=== PATIENT | female | born 1985 | race Caucasian/White ===

== ENCOUNTER 2024-02-29 11:03 | Emergency (ER) | payer MEDICAID ==
[2024-02-29 11:22] LABS: APPEARANCE,URINE SLT CLOUDY; BILIRUBIN,URINE NEGATIVE (NEGATIVE); COLOR,URINE YELLOW; GLUCOSE,URINE NEGATIVE (NEGATIVE); KETONES,URINE TRACE mg/dL (NEGATIVE); LEUKOCYTE ESTERASE,URINE SMALL (NEGATIVE); NITRITE,URINE NEGATIVE (NEGATIVE); OCCULT BLOOD,URINE TRACE-INTACT (NEGATIVE); PROTEIN,URINE NEGATIVE (NEGATIVE)
[2024-02-29 11:38] LABS: BACTERIA,URINE 1+ (NEGATIVE); EPITHELIAL CELLS,URINE FEW (NONE-FEW); MUCUS,URINE LIGHT (NONE-MOD); RBC,URINE 0-2 (0-2/HPF)
[2024-02-29] MEDS: Cefdinir 300 MG Cap PO ONE (12:07)
== END 2024-02-29 12:08 | disposition home or self-care (01) ==
LOC: MW.ED 11:03
DX: N39.0 Urinary tract infection, site not specified (principal); Z88.5 Allergy status to narcotic agent; Z75.8 Other problems related to medical facilities and other health care
CPT/HCPCS: 81001; 81003; 81025; 87086; 99284; A9270; 99283